=== PATIENT | male | born 1985 | race Caucasian/White ===

== ENCOUNTER 2020-08-15 08:40 | Observation (INO) | payer BC ==
--- NOTE | 2020-08-15 08:47 | EDM.PDOC ---
ED HPI GENERAL MEDICAL PROBLEM - General Chief Complaint: Cardiovascular Problem Stated Complaint: CHEST DISCOMFORT Time Seen by Provider: 08/15/20 08:47 Source of Information: Reports: Patient History Limitations: Reports: No Limitations - History of Present Illness INITIAL COMMENTS - FREE TEXT/NARRATIVE: Christiano, 35-year-old male, awoke roughly 4 AM feeling slightly different. States he felt palpitations. Has been seen for hypertension in the past with significant work-up including echocardiograms. Has been discussed in his clinic as well as cardiology other additional medication treatment as he is trending hypertensive. Stated this pressure sensation worsened and he had experience mild shortness of breath along with this, at which time the decision to seek emergency services was given. He presents with no cyanosis nor pallor and was able to transport himself to the facility. 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 Onset: Today, Sudden Duration: Hour(s): Location: Reports: Chest Quality: Reports: Pressure Severity: Moderate Improves with: Reports: None Worsens with: Reports: None Context: Reports: Other Associated Symptoms: Reports: No Other Symptoms Treatments [employer]CH[employer]ICIAN: Reports: Other (see below) (Had taken regular prescribed medications this morning, early in an attempt to feel better.) - Related Data Allergies Allergy/AdvReac Type Severity Reaction Status Date / Time No Known Allergies Allergy Verified 08/15/20 09:50 Past Medical History Cardiovascular History: Reports: Hypertension Social & Family History - Family History Cardiac: Reports: Hypertension Other Cardiac Family History: Prolapse mitral valve - Tobacco Use Tobacco Use Status *Q: Current Every Day Tobacco User Tobacco Use Within Last Twelve Months: No, Cigarettes, Other (See Below) (Smokeless tobacco daily) - Caffeine Use Caffeine Use: Reports: Coffee - Alcohol Use Alcohol Use History: Yes Alcohol Use Frequency: Socially - Recreational Drug Use Recreational Drug Use: No Drug Use in Last 12 Months: No - Living Situation & Occupation Living situation: Reports: , with Spouse ED ROS GENERAL - Review of Systems Review Of Systems: Comprehensive ROS is negative, except as noted in HPI. ED EXAM, GENERAL - Physical Exam Exam: See Below Free Text/Narrative:: Alert, oriented, with no cyanosis nor pallor. He describes pressure sensation to his chest with mild breathing difficulty. PERRLA no icterus no injection HEENT is negative discharge or deformity. [place] moist mucous membranes. Neck is soft supple no JVD, no carotid bruit auscultated. There is no rigidity. Thorax is full throughout clear with nonlabored respirations and saturations are good. Cardiac has a atrial fibrillation irregularly irregular rate, radial pulse is weak and does not correlate with the electrocardiogram. No murmur is appreciated. Abdomen is soft bowel sounds are present no tenderness nor megaly appreciated. There is no edema to the extremities. and rectal are deferred. #1 Interpretation EKG Date: 08/15/20 Time: 08:58 Rhythm: A-Fib Rate (Beats/Min): 117 P-Wave: Absent QRS: RBBB ST-T: Other Comparison: Change From Previous EKG (No hard copy available fro [facility] chart, but interpretation was sinus then 12-02-2019) Course - Vital Signs Last Recorded V/S: Last Vital Signs Temp 98.2 F 08/15/20 09:59 Pulse 78 08/15/20 10:23 Resp 18 08/15/20 10:23 BP 99/72 08/15/20 10:23 Pulse Ox 97 08/15/20 10:23 - Orders/Labs/Meds Orders: Active Orders 24 hr Category Date Time Status EKG Documentation Completion [RC] ASDIRECTED Care 08/15/20 08:46 Active Peripheral IV Care [RC] . DIRECTED Care 08/15/20 08:56 Active Diltiazem 125 mg Med 08/15/20 10:30 Active Sodium Chloride 0.9% [Normal Saline] 100 ml IV TITRATE Sodium Chloride 0.9% [Normal Saline] 1,000 ml Med 08/15/20 09:00 Active IV ASDIRECTED Sodium Chloride 0.9% [Normal Saline] 1,000 ml Med 08/15/20 09:45 Active IV ASDIRECTED Sodium Chloride 0.9% [Saline Flush] Med 08/15/20 08:56 Active 10 ml FLUSH Q8HR PRN Peripheral IV Insertion Adult [OM.PC] Routine Oth 08/15/20 08:56 Ordered EKG 12 Lead [EK] Urgent Ther 08/15/20 08:45 Ordered Medication Orders Sodium Chloride (Normal Saline) 1,000 mls @ 150 mls/hr IV ASDIRECTED OMAYRA Last Admin: 08/15/20 09:44 Dose: 150 mls/hr Documented by: EFFLMAR Sodium Chloride (Normal Saline) 1,000 mls @ 150 mls/hr IV ASDIRECTED OMAYRA Diltiazem HCl 125 mg/ Sodium (Chloride) 125 mls @ 5 mls/hr IV TITRATE OMAYRA Last Admin: 08/15/20 10:52 Dose: 5 mg/hr, 5 mls/hr Documented by: EFFLMAR Sodium Chloride (Saline Flush) 10 ml FLUSH Q8HR PRN PRN Reason: keep vein open Labs: Laboratory Tests 08/15/20 08/15/20 08/15/20 Range/Units 09:03 09:03 09:03 WBC 8.74 (5.00-10.00) 10^3/uL RBC 5.56 (4.50-6.00) 10^6/uL Hgb 15.9 (13.0-17.0) g/dL Hct 46.2 (40.0-52.0) % MCV 83.1 (82.0-92.0) fL MCH 28.6 (27.0-31.0) pg MCHC 34.4 (32.0-36.0) g/dL RDW 12.5 (11.5-14.5) % Plt Count 252 (150-400) 10^3/uL MPV 8.5 (7.4-10.4) fL Immature Gran % (Auto) 0.8 (0.0-5.0) % Neut % (Auto) 61.5 (50.0-70.0) % Lymph % (Auto) 29.2 (20.0-40.0) % [place] % (Auto) 6.1 (2.0-8.0) % Eos % (Auto) 2.1 (1.0-3.0) % Baso % (Auto) 0.3 (0.0-1.0) % Neut # (Auto) 5.38 (2.50-7.00) 10^3/uL Lymph # (Auto) 2.55 (1.00-4.00) 10^3/uL [place] # (Auto) 0.53 (0.10-0.80) 10^3/uL Eos # (Auto) 0.18 (0.10-0.30) 10^3/uL Baso # (Auto) 0.03 (0.00-0.10) 10^3/uL Immature Gran # (Auto) 0.07 (0.00-0.50) 10^3/uL APTT 28.5 (22.8-31.4) SEC D-Dimer, Quantitative < 100 (<400) ng/mL Sodium 138 (136-145) mmol/L Potassium 4.0 (3.5-5.1) mmol/L Chloride 102 (98-107) mmol/L Carbon Dioxide 25.2 (21.0-32.0) mmol/L Anion Gap 14.8 (5-15) mmol/L BUN 13 (7-18) mg/dL Creatinine 0.66 (0.51-1.17) mg/dL Est Cr Clr Drug Dosing TNP Estimated GFR (MDRD) > 60 mL/min Glucose 102 (70-140) mg/dL Lactic Acid (0.4-2.0) mmol/L Calcium 9.4 (8.7-10.3) mg/dL Total Bilirubin 1.0 (0.2-1.0) mg/dL AST 23 (15-37) U/L ALT 84 H (14-63) U/L Alkaline Phosphatase 95 (46-116) U/L Creatine Kinase 90 (26-276) U/L CK-MB (CK-2) 0.82 (0.00-3.60) ng/mL Troponin I < 0.017 (0.000-0.056) ng/mL C-Reactive Protein 1.0 H (0.0-0.9) mg/dL B-Natriuretic Peptide (0-100) pg/mL Total Protein 7.5 (6.4-8.2) g/dL Albumin 4.10 (3.40-5.00) g/dL 08/15/20 08/15/20 Range/Units 09:03 09:03 WBC (5.00-10.00) 10^3/uL RBC (4.50-6.00) 10^6/uL Hgb (13.0-17.0) g/dL Hct (40.0-52.0) % MCV (82.0-92.0) fL MCH (27.0-31.0) pg MCHC (32.0-36.0) g/dL RDW (11.5-14.5) % Plt Count (150-400) 10^3/uL MPV (7.4-10.4) fL Immature Gran % (Auto) (0.0-5.0) % Neut % (Auto) (50.0-70.0) % Lymph % (Auto) (20.0-40.0) % [place] % (Auto) (2.0-8.0) % Eos % (Auto) (1.0-3.0) % Baso % (Auto) (0.0-1.0) % Neut # (Auto) (2.50-7.00) 10^3/uL Lymph # (Auto) (1.00-4.00) 10^3/uL [place] # (Auto) (0.10-0.80) 10^3/uL Eos # (Auto) (0.10-0.30) 10^3/uL Baso # (Auto) (0.00-0.10) 10^3/uL Immature Gran # (Auto) (0.00-0.50) 10^3/uL APTT (22.8-31.4) SEC D-Dimer, Quantitative (<400) ng/mL Sodium (136-145) mmol/L Potassium (3.5-5.1) mmol/L Chloride (98-107) mmol/L Carbon Dioxide (21.0-32.0) mmol/L Anion Gap (5-15) mmol/L BUN (7-18) mg/dL Creatinine (0.51-1.17) mg/dL Est Cr Clr Drug Dosing Estimated GFR (MDRD) mL/min Glucose (70-140) mg/dL Lactic Acid 1.4 (0.4-2.0) mmol/L Calcium (8.7-10.3) mg/dL Total Bilirubin (0.2-1.0) mg/dL AST (15-37) U/L ALT (14-63) U/L Alkaline Phosphatase (46-116) U/L Creatine Kinase (26-276) U/L CK-MB (CK-2) (0.00-3.60) ng/mL Troponin I (0.000-0.056) ng/mL C-Reactive Protein (0.0-0.9) mg/dL B-Natriuretic Peptide 6 (0-100) pg/mL Total Protein (6.4-8.2) g/dL Albumin (3.40-5.00) g/dL Meds: Medications Generic Name Dose Route Start Last Admin Trade Name Freq PRN Reason Stop Dose Admin Sodium Chloride 1,000 mls @ 150 mls/hr 08/15/20 09:00 08/15/20 09:44 Normal Saline IV 150 mls/hr ASDIRECTED OMAYRA Administration Sodium Chloride 1,000 mls @ 150 mls/hr 08/15/20 09:45 Normal Saline IV ASDIRECTED OMAYRA Diltiazem HCl 125 mg/ Sodium 125 mls @ 5 mls/hr 08/15/20 10:30 08/15/20 10:52 Chloride IV 5 mg/hr TITRATE OMAYRA 5 mls/hr Administration 5 MG/HR Sodium Chloride 10 ml 08/15/20 08:56 Saline Flush FLUSH Q8HR PRN keep vein open Discontinued Medications Generic Name Dose Route Start Last Admin Trade Name Freq PRN Reason Stop Dose Admin Diltiazem HCl 20 mg 08/15/20 08:57 08/15/20 09:43 Diltiazem IVPUSH 08/15/20 08:58 20 mg ONETIME ONE Administration Diltiazem HCl 25 mg 08/15/20 10:07 08/15/20 10:16 Diltiazem IVPUSH 08/15/20 10:08 25 mg ONETIME ONE Administration Sodium Chloride Confirm 08/15/20 09:41 08/15/20 10:24 Normal Saline Administered 08/15/20 09:42 Not Given Dose 1,000 mls @ as directed .ROUTE .STK-MED ONE - Re-Assessments/Exams Free Text/Narrative Re-Assessment/Exam: 08/15/20 11:41 Noted improvement in his symptoms after the initial 20 mg Cardizem IV with rate slowing to the 80s remaining irregularly irregular. Repeat bolus of 25 mg Cardizem dropped his rate into the 70s occasionally low 70s upper 60s but consists continued with atrial fibrillation. IV drip was started with good rate control currently at 72 but remains atrial fibrillation. Discussed case with Eric Glover and agrees to admission to observation status. Free Text/Narrative Re-Assessment/Exam: 08/15/20 11:49 Advised of the admission status to observation for continuation of care and evaluation for his atrial fibrillation. Departure - Departure Time of Disposition: 11:45 Disposition: Refer to Observation Condition: Good Clinical Impression: Atrial fibrillation with RVR - Discharge Information *PRESCRIPTION DRUG MONITORING PROGRAM REVIEWED*: Not Applicable *COPY OF PRESCRIPTION DRUG MONITORING REPORT IN PATIENT REGINA: Not Applicable Referrals: Era Rich RADIO INTELLIGENCE OPERATOR [Primary Care Provider] - Forms: ED Department Discharge Additional Instructions: Will be admitted to care of [facility] per CARLOS Cuadra, observation status at this time. Sepsis Event Note (ED) - Focused Exam Vital Signs: Vital Signs Temp Pulse Resp BP Pulse Ox 08/15/20 10:23 78 18 99/72 97 08/15/20 09:59 98.2 F 118 H 20 145/85 H 98 ED Communication - ED Communication Date/Time Date: 08/15/20 Time Called: 11:30 - Discussed Case With (1) Discussed Case With (1): Admitting Provider Person/s Notified (1): Eric Glover - Problem List & Annotations (1) Atrial fibrillation with RVR SNOMED Code(s): 347234242202691 Code(s): I48.91 - UNSPECIFIED ATRIAL FIBRILLATION Status: Acute Priority: High Current Visit: Yes (2) Shortness of breath SNOMED Code(s): 942682611 Code(s): R06.02 - SHORTNESS OF BREATH Status: Acute Priority: High Current Visit: Yes (3) Hypertension SNOMED Code(s): 19301977 Code(s): I10 - ESSENTIAL (PRIMARY) HYPERTENSION Status: Chronic Priority: High Current Visit: Yes Qualifiers: Hypertension type: essential hypertension Qualified Code(s): I10 - Essential (primary) hypertension - Problem List Review Problem List Initiated/Reviewed/Updated: Yes - My Orders Last 24 Hours: My Active Orders 08/15/20 08:45 EKG 12 Lead [EK] Urgent 08/15/20 08:46 EKG Documentation Completion [RC] ASDIRECTED 08/15/20 08:56 Peripheral IV Care [RC] . DIRECTED Sodium Chloride 0.9% [Saline Flush] 10 ml FLUSH Q8HR PRN Peripheral IV Insertion Adult [OM.PC] Routine 08/15/20 09:00 Sodium Chloride 0.9% [Normal Saline] 1,000 ml IV ASDIRECTED 08/15/20 09:45 Sodium Chloride 0.9% [Normal Saline] 1,000 ml IV ASDIRECTED 08/15/20 10:30 Diltiazem 125 mg Sodium Chloride 0.9% [Normal Saline] 100 ml IV TITRATE - Assessment/Plan Last 24 Hours: My Active Orders 08/15/20 08:45 EKG 12 Lead [EK] Urgent 08/15/20 08:46 EKG Documentation Completion [RC] ASDIRECTED 08/15/20 08:56 Peripheral IV Care [RC] . DIRECTED Sodium Chloride 0.9% [Saline Flush] 10 ml FLUSH Q8HR PRN Peripheral IV Insertion Adult [OM.PC] Routine 08/15/20 09:00 Sodium Chloride 0.9% [Normal Saline] 1,000 ml IV ASDIRECTED 08/15/20 09:45 Sodium Chloride 0.9% [Normal Saline] 1,000 ml IV ASDIRECTED 08/15/20 10:30 Diltiazem 125 mg Sodium Chloride 0.9% [Normal Saline] 100 ml IV TITRATE Plan: Will be admitted to care of [facility] per CARLOS Cuadra, observation status at this time.
[2020-08-15] MEDS ORDERED: Sodium Chloride 0.9% 10 ML Syringe FLUSH PRN (08:56)
[2020-08-15] MEDS ORDERED: Diltiazem 25 MG/5 ML SDV IVPUSH ONE ×3 (08:57→15:07)
[2020-08-15] MEDS ORDERED: Sodium Chloride 0.9% 1,000 ML IV SCH ×2 (09:00→09:45)
--- NOTE | 2020-08-15 09:38 | CR ---
[id number] RAD/RAD Chest PA And Lateral EXAM: RAD Chest PA And Lateral INDICATION: PALPITATION. COMPARISON: None. DISCUSSION: Cardiomediastinal silhouette is normal in size and contour. No infiltrate, effusion, pneumothorax, or edema. IMPRESSION: No acute cardiopulmonary abnormality. Ralf Whalen DO 08/15/20 0937 Thank you for allowing us to participate in the care of your patient.
[2020-08-15] MEDS ORDERED: Sodium Chloride 0.9% 1,000 ML ONE (09:41)
[2020-08-15 09:43] LABS: PTT,PARTIAL THROMBOPLSTIN TIME 28.5 SEC (22.8-31.4)
[2020-08-15 09:46] LABS: ANION GAP 14.8 mmol/L (5-15); CHLORIDE,CL 102 mmol/L (98-107); SODIUM,NA 138 mmol/L (136-145)
[2020-08-15] MEDS: Diltiazem 125 MG in Sodium Chloride 0.9% 100 ML IV SCH ×2 (10:52→20:22)
--- NOTE | 2020-08-15 12:14 | PCM.HP.2 ---
H&P History of Present Illness - General Date of Service: 08/15/20 Admit Problem/Dx: Admission Diagnosis/Problem Admission Diagnosis/Problem Afib, Atrial fibrillation Source of Information: Patient, Old Records, Provider, RN - Related Data Allergies/Adverse Reactions: Allergies Allergy/AdvReac Type Severity Reaction Status Date / Time No Known Allergies Allergy Verified 08/15/20 09:50 Home Medications: Home Meds Albuterol Sulfate [Albuterol Sulfate HFA] 1 puff INH Q2H PRN 08/15/20 [History] Losartan [Cozaar] 25 mg PO DAILY 08/15/20 [History] Metoprolol Succinate [Toprol XL 100mg] 150 mg PO DAILY 08/15/20 [History] Past Medical History Cardiovascular History: Reports: Hypertension - Past Surgical History Other Respiratory Surgeries/Procedures: has allergies to dust Social & Family History - Family History Cardiac: Reports: Hypertension Other Cardiac Family History: Prolapse mitral valve - Tobacco Use Tobacco Use Status *Q: Current Every Day Tobacco User - Caffeine Use Caffeine Use: Reports: Coffee - Recreational Drug Use Recreational Drug Use: No Drug Use in Last 12 Months: No - Living Situation & Occupation Living situation: Reports: , with Spouse H&P Review of Systems - Review of Systems: Review Of Systems: See Below General: Reports: No Symptoms HEENT: Reports: No Symptoms Pulmonary: Reports: No Symptoms Cardiovascular: Reports: Palpitations. Denies: Dyspnea on Exertion Gastrointestinal: Reports: No Symptoms Genitourinary: Reports: No Symptoms Musculoskeletal: Reports: No Symptoms Skin: Reports: No Symptoms Psychiatric: Reports: No Symptoms Neurological: Reports: No Symptoms Hematologic/Lymphatic: Reports: No Symptoms Immunologic: Reports: No Symptoms Exam - Exam Exam: See Below - Vital Signs Vital Signs: Last Vital Signs Temp 98.2 F 08/15/20 09:59 Pulse 78 08/15/20 10:23 Resp 18 08/15/20 10:23 BP 99/72 08/15/20 10:23 Pulse Ox 97 08/15/20 10:23 Weight: 287 lb - Exam Quality Assessment: No: Supplemental Oxygen, DVT Prophylaxis General: Alert, Oriented, 4 HEENT: Mucosa Moist & [place] Neck: Supple, Trachea Midline, 2 Lungs: Clear to Auscultation, Normal Respiratory Effort Cardiovascular: Irregular Rhythm. No: Bradycardia, Tachycardia, Diastolic Murmur GI/Abdominal Exam: Normal Bowel Sounds, Soft, Non-Tender Back Exam: No: CVA Tenderness (R) Extremities: Normal Inspection Peripheral Pulses: 2+: Radial (L), Radial (R) Skin: Warm, Dry, Intact Neurological: Cranial Nerves Intact Neuro Extensive - Mental Status: Alert, Oriented x3 Neuro Extensive - Motor, Sensory, Reflexes: CN II-XII Intact Psychiatric: Alert, Normal Affect, Normal Mood - Patient Data Lab Results Last 24 hrs: Laboratory Results - last 24 hr 08/15/20 08/15/20 08/15/20 Range/Units 09:03 09:03 09:03 WBC 8.74 (5.00-10.00) 10^3/uL RBC 5.56 (4.50-6.00) 10^6/uL Hgb 15.9 (13.0-17.0) g/dL Hct 46.2 (40.0-52.0) % MCV 83.1 (82.0-92.0) fL MCH 28.6 (27.0-31.0) pg MCHC 34.4 (32.0-36.0) g/dL RDW 12.5 (11.5-14.5) % Plt Count 252 (150-400) 10^3/uL MPV 8.5 (7.4-10.4) fL Immature Gran % (Auto) 0.8 (0.0-5.0) % Neut % (Auto) 61.5 (50.0-70.0) % Lymph % (Auto) 29.2 (20.0-40.0) % [place] % (Auto) 6.1 (2.0-8.0) % Eos % (Auto) 2.1 (1.0-3.0) % Baso % (Auto) 0.3 (0.0-1.0) % Neut # (Auto) 5.38 (2.50-7.00) 10^3/uL Lymph # (Auto) 2.55 (1.00-4.00) 10^3/uL [place] # (Auto) 0.53 (0.10-0.80) 10^3/uL Eos # (Auto) 0.18 (0.10-0.30) 10^3/uL Baso # (Auto) 0.03 (0.00-0.10) 10^3/uL Immature Gran # (Auto) 0.07 (0.00-0.50) 10^3/uL APTT 28.5 (22.8-31.4) SEC D-Dimer, Quantitative < 100 (<400) ng/mL Sodium 138 (136-145) mmol/L Potassium 4.0 (3.5-5.1) mmol/L Chloride 102 (98-107) mmol/L Carbon Dioxide 25.2 (21.0-32.0) mmol/L Anion Gap 14.8 (5-15) mmol/L BUN 13 (7-18) mg/dL Creatinine 0.66 (0.51-1.17) mg/dL Est Cr Clr Drug Dosing TNP Estimated GFR (MDRD) > 60 mL/min Glucose 102 (70-140) mg/dL Lactic Acid (0.4-2.0) mmol/L Calcium 9.4 (8.7-10.3) mg/dL Total Bilirubin 1.0 (0.2-1.0) mg/dL AST 23 (15-37) U/L ALT 84 H (14-63) U/L Alkaline Phosphatase 95 (46-116) U/L Creatine Kinase 90 (26-276) U/L CK-MB (CK-2) 0.82 (0.00-3.60) ng/mL Troponin I < 0.017 (0.000-0.056) ng/mL C-Reactive Protein 1.0 H (0.0-0.9) mg/dL B-Natriuretic Peptide (0-100) pg/mL Total Protein 7.5 (6.4-8.2) g/dL Albumin 4.10 (3.40-5.00) g/dL 08/15/20 08/15/20 Range/Units 09:03 09:03 WBC (5.00-10.00) 10^3/uL RBC (4.50-6.00) 10^6/uL Hgb (13.0-17.0) g/dL Hct (40.0-52.0) % MCV (82.0-92.0) fL MCH (27.0-31.0) pg MCHC (32.0-36.0) g/dL RDW (11.5-14.5) % Plt Count (150-400) 10^3/uL MPV (7.4-10.4) fL Immature Gran % (Auto) (0.0-5.0) % Neut % (Auto) (50.0-70.0) % Lymph % (Auto) (20.0-40.0) % [place] % (Auto) (2.0-8.0) % Eos % (Auto) (1.0-3.0) % Baso % (Auto) (0.0-1.0) % Neut # (Auto) (2.50-7.00) 10^3/uL Lymph # (Auto) (1.00-4.00) 10^3/uL [place] # (Auto) (0.10-0.80) 10^3/uL Eos # (Auto) (0.10-0.30) 10^3/uL Baso # (Auto) (0.00-0.10) 10^3/uL Immature Gran # (Auto) (0.00-0.50) 10^3/uL APTT (22.8-31.4) SEC D-Dimer, Quantitative (<400) ng/mL Sodium (136-145) mmol/L Potassium (3.5-5.1) mmol/L Chloride (98-107) mmol/L Carbon Dioxide (21.0-32.0) mmol/L Anion Gap (5-15) mmol/L BUN (7-18) mg/dL Creatinine (0.51-1.17) mg/dL Est Cr Clr Drug Dosing Estimated GFR (MDRD) mL/min Glucose (70-140) mg/dL Lactic Acid 1.4 (0.4-2.0) mmol/L Calcium (8.7-10.3) mg/dL Total Bilirubin (0.2-1.0) mg/dL AST (15-37) U/L ALT (14-63) U/L Alkaline Phosphatase (46-116) U/L Creatine Kinase (26-276) U/L CK-MB (CK-2) (0.00-3.60) ng/mL Troponin I (0.000-0.056) ng/mL C-Reactive Protein (0.0-0.9) mg/dL B-Natriuretic Peptide 6 (0-100) pg/mL Total Protein (6.4-8.2) g/dL Albumin (3.40-5.00) g/dL Result Diagrams: 08/15/20 09:03 08/15/20 09:03 Sepsis Event Note - Evaluation Sepsis Screening Result: No Definite Risk - Focused Exam Vital Signs: Vital Signs Temp Pulse Resp BP Pulse Ox 08/15/20 10:23 78 18 99/72 97 08/15/20 09:59 98.2 F 118 H 20 145/85 H 98 Problem List Initiated/Reviewed/Updated: Yes Orders Last 24hrs: Active Orders 24 hr Category Date Time Status Patient Status [ADT] Routine ADT 08/15/20 11:45 Active EKG Documentation Completion [RC] ASDIRECTED Care 08/15/20 08:46 Active Peripheral IV Care [RC] . DIRECTED Care 08/15/20 08:56 Active CORONAVIRUS COVID-19 RAPID [MOLEC] Stat Lab 08/15/20 12:00 Ordered Diltiazem 125 mg Med 08/15/20 10:30 Active Sodium Chloride 0.9% [Normal Saline] 100 ml IV TITRATE Sodium Chloride 0.9% [Normal Saline] 1,000 ml Med 08/15/20 09:00 Active IV ASDIRECTED Sodium Chloride 0.9% [Normal Saline] 1,000 ml Med 08/15/20 09:45 Active IV ASDIRECTED Sodium Chloride 0.9% [Saline Flush] Med 08/15/20 08:56 Active 10 ml FLUSH Q8HR PRN Peripheral IV Insertion Adult [OM.PC] Routine Oth 08/15/20 08:56 Ordered EKG 12 Lead [EK] Urgent Ther 08/15/20 08:45 Stop Req Medication Orders Sodium Chloride (Normal Saline) 1,000 mls @ 150 mls/hr IV ASDIRECTED OMAYRA Last Admin: 08/15/20 09:44 Dose: 150 mls/hr Documented by: EFFLMAR Sodium Chloride (Normal Saline) 1,000 mls @ 150 mls/hr IV ASDIRECTED OMAYRA Diltiazem HCl 125 mg/ Sodium (Chloride) 125 mls @ 5 mls/hr IV TITRATE OMAYRA Last Admin: 08/15/20 10:52 Dose: 5 mg/hr, 5 mls/hr Documented by: EFFLMAR Sodium Chloride (Saline Flush) 10 ml FLUSH Q8HR PRN PRN Reason: keep vein open Assessment/Plan Comment:: History of present illness Mr. Morris is a 35-year-old obese patient that was admitted to OBS status due to new onset atrial fibrillation RVR. Patient self drove himself into the ED after he woke early this morning with some chest palpitations accompanied with chest pressure and mild SOB. Does have history of HTN and is on Toprol which he took this morning prior to arrival. Pertinent diagnostics ECHO, 02/2018; EF 60%, no valvular disease EKG; 12/02/2019, NSR, LAD with incomplete RBBB Renal indices electrolytes troponin normal ED course Cardizem IVP x2 with good improvement of intrinsic rate 70-8-'s, subsequent diltiazem drip, rate in the 80s. Troponin normal. Mild palpitations, chest pain or shortness of breath now. Primary hospital problems --Atrial fibrillation, new onset, [id number] score 1 (HTN) --Hypertension, needs improved control, contributory with LAD noted on ECG --Obesity, contributory lifestyle modifications discussed. Disposition/overall plan --Admit to OBS status secondary to IV administration diltiazem drip for aggressive rate control strategy due to age, newly onset A. fib rhythm --Goal for this patient would be rhythm control with aggressive CCB drip to give him best chance of converting today --Start anticoagulation as patient may have to be cardioverted within 2 weeks if cannot convert pharmacologically --If we get rate controlled today and he remains <100 will change to PO CCB and anticipate discharge in a.m. with close follow-up and ongoing anticoagulation with cardiology EP consultation for cardioversion in 2 weeks --Repeat ECG if the ECG changes/suspect sinus rhythm and notify on-call provider --Nurses, print out DASH for patient --Educational handout/DVDs for atrial fibrillation Education on risk reduction --Wt reduction --DASH diet handout --Lifestyle modifications. DC planning/outpaient recommendations regarding HTN Prior to Afib, monotherapy with Metoprol likely not ideal med given age/no hx of CV disease with its propensities of decreasing peripheral BP rather than central BP; however since now with Afib hx, likely could benefit with Toprol with added CCB until conversion (either chemically or electrically) and then keep Toprol but give at HS and add diuretic during the am since likely volume issue. BP Goal >130/80 - Mortality Measure Prognosis:: Good
[2020-08-15] MEDS ORDERED: Atropine 0.1 MG/ML 10 ML Syringe IVPUSH PRN (14:14)
[2020-08-15] MEDS ORDERED: Nitroglycerin 0.4 MG Tab.SL SL PRN (14:14)
[2020-08-15] MEDS ORDERED: Lidocaine 2% 100 MG/5 ML Syringe IVPUSH PRN (14:14)
[2020-08-15] MEDS ORDERED: EPINEPHrine 1:10,000 1 MG/10 ML Syringe IVPUSH PRN (14:14)
[2020-08-15] MEDS ORDERED: Rivaroxaban 10 MG Tab ONE (15:27)
[2020-08-15] MEDS: Rivaroxaban 10 MG Tab PO SCH ×2 (15:31→18:16)
[2020-08-15] MEDS ORDERED: Metoprolol Tartrate 50 MG Tab PO ONE (18:45)
[2020-08-15] MEDS ORDERED: Sodium Chloride 0.9% 100 ML ONE (20:04)
[2020-08-15] MEDS ORDERED: ALPRAZolam 0.25 MG Tab PO ONE (20:40)
--- NOTE | 2020-08-16 10:00 | PCM.DCSUM1 ---
Discharge Summary - Hospital Course Diagnosis: Stroke: No - Discharge Data Discharge Date: 08/16/20 Discharge Disposition: Home, Self-Care 01 Condition: Good - Referral to Home Health Primary Care Physician: Era Rich NP - Patient Instructions Diet: Low Sodium, No Alcoholic Beverages Diet, Other: DASH DIET Activity: No Strenuous Activities, Rest and Relax Today Driving: May Drive Today Showering/Bathing: May Shower Other/Special Instructions: Report any lightheadedness, chest pain, palpitations or chest fluttering. DASH DIET will help your blood pressure. Stay on your blood thinner until you see cardiology. Toprol at night new medication of Cardizem in the morning. At this time I am holding your losartan due to added Cardizem. Take home monitoring blood pressure reading daily, top number below 100 or heart rate below 60s. Journal them and bring into clinic on follow-up. Cardiology appointment has been scheduled - Discharge Plan *PRESCRIPTION DRUG MONITORING PROGRAM REVIEWED*: Not Applicable *COPY OF PRESCRIPTION DRUG MONITORING REPORT IN PATIENT REGINA: Not Applicable Prescriptions/Med Rec: Diltiazem [Cardizem CD] 120 mg PO DAILY #30 cap.er Rivaroxaban [Xarelto] 20 mg PO 1800 #30 tablet Home Medications: Home Meds Albuterol Sulfate [Albuterol Sulfate HFA] 1 puff INH Q2H PRN 08/15/20 [History] Diltiazem [Cardizem CD] 120 mg PO DAILY #30 cap.er 08/16/20 [Rx] Metoprolol Succinate [Toprol XL 100mg] 100 mg PO BEDTIME #30 08/16/20 [Rx] Rivaroxaban [Xarelto] 20 mg PO 1800 #30 tablet 08/16/20 [Rx] Referrals: Era Rich SECURITIES TRADER [Primary Care Provider] - - Discharge Summary/Plan Comment DC Time >30 min.: Yes Discharge Summary/Plan Comment: Final diagnosis Atrial fibrillation, new onset, conversion to NSR, [id number] score 1 (HTN), rhythm strategy priority Obesity BMI 34%, comorbid, risk factor HTN; comorbid, risk factor longstanding as evidence of ECG History summary Mr. Morris is a 35-year-old obese patient that was admitted to [facility] due to new onset atrial fibrillation RVR. Patient self drove himself into the ED after he woke early this morning with some chest palpitations accompanied with chest pressure and mild SOB. Does have history of HTN and is on Toprol which he took this morning prior to arrival. Pertinent diagnostics ECHO, 02/2018; EF 60%, no valvular disease EKG; 12/02/2019, NSR, LAD with incomplete RBBB Renal indices electrolytes troponin normal ED course Cardizem IVP x2 with good improvement of intrinsic rate 70-8-'s, subsequent diltiazem drip, rate in the 80s. Troponin normal. Mild palpitations, chest pain or shortness of breath now. Hospital course Patient's hospital course went well without any adverse events or side effects to medications and/or treatments. The patient started on diltiazem drip from the ED however upon arriving to the floor it was increased aggressively with ongoing vanessa adjunctive therapy due for the need of chemically cardioverting within 24 hours since new onset. Patient's blood pressure remained good well above threshold, he chemically cardioverted approximately 2200 on day of admission remained sinus rhythm throughout the night. TSH was added normal. He was given weight reduction counseling, DASH diet handout upon discharge along with lifestyle modifications. Prior to discharge a brisk 6-minute walk and nursing halls without tachycardia or breakthrough. Medication changes/adjustments upon discharge Toprol 100 mg at qhs, Was on 150mg home med, reduced at DC Cardizem CD 120 mg p.o. a.m., (newly added this admission) Xarelto 20 mg p.o. daily at 1800, (newly added this admission) Losartan, (Home med, hold at this time) Disposition/plan --Will be discharged from OBS status --Follow-up appointment with Era Rich nurse practitioner [facility] --Cardiology c/s placed through EMR/Ortho Neuro Management Discharge instructions Report any lightheadedness, chest pain, palpitations or chest fluttering DASH DIET will help your blood pressure Stay on your blood thinner until you see cardiology Toprol at night new medication of Cardizem in the morning At this time I am holding your losartan due to added Cardizem Cardiology appointment has been scheduled Take home monitoring blood pressure reading daily, Report top number below 100 or heart rate below 60s. Journal BP and bring bring into clinic on follow-up [place] planning/outpatient recommendations regarding HTN Prior to Afib, monotherapy with Metoprol likely not ideal med given age/no hx of CV disease with its propensities of decreasing peripheral BP rather than central BP; however since now with Afib hx, likely could benefit with Toprol with added CCB since chemically cardioverted and then keep home Toprol but give at HS and add Cardizem CD. BP Goal <130/80 - General Info Functional Status: Reports: Pain Controlled - Review of Systems General: Reports: No Symptoms HEENT: Reports: No Symptoms Pulmonary: Reports: No Symptoms Cardiovascular: Reports: No Symptoms Gastrointestinal: Reports: No Symptoms Genitourinary: Reports: No Symptoms Musculoskeletal: Reports: No Symptoms Skin: Reports: No Symptoms Neurological: Reports: No Symptoms Psychiatric: Reports: No Symptoms - Patient Data Vitals - Most Recent: Last Vital Signs Temp 97.7 F 08/16/20 06:22 Pulse 66 08/16/20 06:22 Resp 16 08/16/20 06:22 BP 131/70 08/16/20 06:22 Pulse Ox 97 08/16/20 06:22 Weight - Most Recent: 282 lb 6.4 oz I&O - Last 24 hours: Intake & Output 08/15/20 08/16/20 08/16/20 22:59 06:59 14:59 Intake Total 1120 250 Balance 1120 250 Lab Results - Last 24 hrs: Laboratory Results - last 24 hr 08/15/20 08/15/20 08/15/20 Range/Units 09:03 09:03 09:03 D-Dimer, Quantitative < 100 (<400) ng/mL Sodium 138 (136-145) mmol/L Potassium 4.0 (3.5-5.1) mmol/L Chloride 102 (98-107) mmol/L Carbon Dioxide 25.2 (21.0-32.0) mmol/L Anion Gap 14.8 (5-15) mmol/L BUN 13 (7-18) mg/dL Creatinine 0.66 (0.51-1.17) mg/dL Est Cr Clr Drug Dosing TNP Estimated GFR (MDRD) > 60 mL/min Glucose 102 (70-140) mg/dL Calcium 9.4 (8.7-10.3) mg/dL Magnesium (1.8-2.4) mg/dL Total Bilirubin 1.0 (0.2-1.0) mg/dL AST 23 (15-37) U/L ALT 84 H (14-63) U/L Alkaline Phosphatase 95 (46-116) U/L Creatine Kinase 90 (26-276) U/L CK-MB (CK-2) 0.82 (0.00-3.60) ng/mL Troponin I < 0.017 (0.000-0.056) ng/mL C-Reactive Protein 1.0 H (0.0-0.9) mg/dL B-Natriuretic Peptide 6 (0-100) pg/mL Total Protein 7.5 (6.4-8.2) g/dL Albumin 4.10 (3.40-5.00) g/dL TSH, Ultra Sensitive (0.340-4.820) uIU/mL SARS CoV-2 RNA Rapid DOROTHY (NEGATIVE) 08/15/20 08/15/20 Range/Units 09:03 12:00 D-Dimer, Quantitative (<400) ng/mL Sodium (136-145) mmol/L Potassium (3.5-5.1) mmol/L Chloride (98-107) mmol/L Carbon Dioxide (21.0-32.0) mmol/L Anion Gap (5-15) mmol/L BUN (7-18) mg/dL Creatinine (0.51-1.17) mg/dL Est Cr Clr Drug Dosing Estimated GFR (MDRD) mL/min Glucose (70-140) mg/dL Calcium (8.7-10.3) mg/dL Magnesium 1.7 L (1.8-2.4) mg/dL Total Bilirubin (0.2-1.0) mg/dL AST (15-37) U/L ALT (14-63) U/L Alkaline Phosphatase (46-116) U/L Creatine Kinase (26-276) U/L CK-MB (CK-2) (0.00-3.60) ng/mL Troponin I (0.000-0.056) ng/mL C-Reactive Protein (0.0-0.9) mg/dL B-Natriuretic Peptide (0-100) pg/mL Total Protein (6.4-8.2) g/dL Albumin (3.40-5.00) g/dL TSH, Ultra Sensitive 0.550 (0.340-4.820) uIU/mL SARS CoV-2 RNA Rapid DOROTHY Negative (NEGATIVE) Med Orders - Current: Current Medications Atropine Sulfate (Atropine 0.1 Mg/Ml) 0 mg IVPUSH ASDIRECTED PRN PRN Reason: Heart. Epinephrine HCl (Epinephrine 1:10,000) 1 mg IVPUSH ASDIRECTED PRN PRN Reason: Heart. Lidocaine HCl (Xylocaine 2%) 0 mg IVPUSH ASDIRECTED PRN PRN Reason: Heart. Nitroglycerin (Nitrostat) 0.4 mg SL ASDIRECTED PRN PRN Reason: Heart. Rivaroxaban (Xarelto) 20 mg PO 1800 [facility] Last Admin: 08/15/20 18:16 Dose: Not Given Documented by: Sodium Chloride (Saline Flush) 10 ml FLUSH Q8HR PRN PRN Reason: keep vein open Last Admin: 08/15/20 22:50 Dose: 10 ml Documented by: Discontinued Medications Alprazolam (Xanax) 0.5 mg PO ONETIME ONE Stop: 08/15/20 20:41 Last Admin: 08/15/20 21:12 Dose: 0.5 mg Documented by: Diltiazem HCl (Diltiazem) 20 mg IVPUSH ONETIME ONE Stop: 08/15/20 08:58 Last Admin: 08/15/20 09:43 Dose: 20 mg Documented by: Diltiazem HCl (Diltiazem) 25 mg IVPUSH ONETIME ONE Stop: 08/15/20 10:08 Last Admin: 08/15/20 10:16 Dose: 25 mg Documented by: Diltiazem HCl (Diltiazem) 5 mg IVPUSH ONETIME ONE Stop: 08/15/20 15:08 Last Admin: 08/15/20 15:31 Dose: 5 mg Documented by: Sodium Chloride (Normal Saline) 1,000 mls @ 150 mls/hr IV ASDIRECTED [facility] Last Admin: 08/15/20 09:44 Dose: 150 mls/hr Documented by: Sodium Chloride (Normal Saline) 1,000 mls @ 150 mls/hr IV ASDIRECTED [facility] Sodium Chloride (Normal Saline) Confirm Administered Dose 1,000 mls @ as directed .ROUTE .STK-MED ONE Stop: 08/15/20 09:42 Last Admin: 08/15/20 10:24 Dose: Not Given Documented by: Diltiazem HCl 125 mg/ Sodium (Chloride) 125 mls @ 5 mls/hr IV TITRATE OMAYRA; Protocol Last Admin: 08/15/20 20:22 Dose: 15 mg/hr, 15 mls/hr Documented by: Sodium Chloride (Normal Saline) Confirm Administered Dose 100 mls @ as directed .ROUTE .STK-MED ONE Stop: 08/15/20 20:05 Last Admin: 08/15/20 21:07 Dose: Not Given Documented by: Metoprolol Tartrate (Lopressor) 50 mg PO ONETIME ONE Stop: 08/15/20 18:46 Last Admin: 08/15/20 19:13 Dose: 50 mg Documented by: Rivaroxaban (Xarelto) Confirm Administered Dose 20 mg .ROUTE .STK-MED ONE Stop: 08/15/20 15:28 Last Admin: 08/15/20 15:52 Dose: Not Given Documented by: - Exam General: Reports: Alert, Oriented Lungs: Reports: Clear to Auscultation, Normal Respiratory Effort Cardiovascular: Reports: Regular Rate, Regular Rhythm Psy/Mental Status: Reports: Alert, Normal Affect, Normal Mood
== END 2020-08-16 10:35 | disposition home or self-care (01) ==
LOC: KA.ED 08:40 → KA.MS 11:45
PROVIDERS: ADMIT Family Medicine; ATTEND Nurse Practitioner Family
DX: I48.91 Unspecified atrial fibrillation (principal); I10 Essential (primary) hypertension; F17.200 Nicotine dependence, unspecified, uncomplicated; E66.9 Obesity, unspecified; Z20.822 Contact with and (suspected) exposure to COVID-19; Z79.899 Other long term (current) drug therapy
CPT/HCPCS: 36415; 71046; 80053; 82550; 82553; 83605; 83735; 83880; 84443; 84484; 85025; 85379; 85730; 86140; 93005; 96365; 96366; 96376; 99284; 99285-25; A9270-GY; G0378; J3490; J7030; U0002

== ENCOUNTER 2025-03-09 23:37 | Emergency (ER) | payer BC ==
[2025-03-09] MEDS: Sodium Chloride 0.9% 10 ML Syringe FLUSH PRN (23:59)
[2025-03-10] MEDS: Diltiazem 25 MG/5 ML SDV IVPUSH ONE ×2 (00:06→00:30)
[2025-03-10 00:14] LABS: BASOPHILS ABSOLUTE AUTO 0.02 10^3/uL (0.00-0.10); BASOPHILS PERCENT AUTO 0.2 % (0.0-1.0); EOSINOPHILS ABSOLUTE AUTO 0.19 10^3/uL (0.10-0.30); EOSINOPHILS PERCENT AUTO 1.7 % (1.0-3.0); IMMATURE GRAN ABSOLUTE AUTO 0.07 10^3/uL (0.00-0.04); IMMATURE GRAN PERCENT AUTO 0.6 % (0.0-0.4); LYMPHOCYTES ABSOLUTE AUTO 2.68 10^3/uL (1.00-4.00); LYMPHOCYTES PERCENT AUTO 24.5 % (20.0-40.0); MEAN PLATELET VOLUME 8.6 fL (7.4-10.4); MONOCYTES ABSOLUTE AUTO 0.71 10^3/uL (0.10-0.80); MONOCYTES PERCENT AUTO 6.5 % (2.0-8.0); NEUTROPHILS ABSOLUTE AUTO 7.25 10^3/uL (2.50-7.00); NEUTROPHILS PERCENT AUTO 66.5 % (50.0-70.0); PLATELET COUNT,PLT 297 10^3/uL (150-400); RED BLOOD CELL COUNT 5.14 10^6/uL (4.50-6.00); RED CELL DISTRIBUTION WIDTH 12.3 % (11.5-14.5); WHITE BLOOD CELL COUNT,WBC 10.92 10^3/uL (5.00-10.00)
[2025-03-10 00:30] LABS: B-TYPE NATRIURETIC PEPTIDE,BNP < 5 pg/mL (0-100)
[2025-03-10 00:41] LABS: ALANINE AMINOTRANSFERASE,ALT 50 U/L (14-63); ASPARTATE AMNIOTRANSFERASE,AST 19 U/L (15-37); BILIRUBIN TOTAL 0.6 mg/dL (0.2-1.0); BLOOD UREA NITROGEN,BUN 18 mg/dL (7-18); CARBON DIOXIDE,CO2 25.6 mmol/L (21.0-32.0); CHLORIDE,CL 106 mmol/L (98-107); CREATININE 0.92 mg/dL (0.51-1.17); ESTIMATED GFR 109 mL/min (>=60); GLUCOSE RANDOM 127 mg/dL (70-140); POTASSIUM,K 3.6 mmol/L (3.5-5.1); PROTEIN TOTAL,TP 7.2 g/dL (6.4-8.2); SODIUM,NA 142 mmol/L (136-145)
== END 2025-03-10 01:31 | disposition home or self-care (01) ==
LOC: KA.ED 23:37
DX: I48.91 Unspecified atrial fibrillation (principal); E78.00 Pure hypercholesterolemia, unspecified; I10 Essential (primary) hypertension; E66.9 Obesity, unspecified; Z79.899 Other long term (current) drug therapy; Z79.82 Long term (current) use of aspirin
CPT/HCPCS: 36415; 80053; 83880; 84484; 85025; 93005; 93010; 96361; 96374; 99284; 99285-25; A9270-GY; J1163; J7030